=== PATIENT | female | born 1995 | race Caucasian/White ===

== ENCOUNTER 2024-10-08 13:24 | Outpatient (CLI) | payer MEDICAID, SELFPAY | END 2024-10-08 13:25 | disposition home or self-care (01) | PROVIDERS: PCP Registered Nurse; Visit Provider Registered Nurse | DX: Z13.220 Encounter for screening for lipoid disorders (principal); Z13.1 Encounter for screening for diabetes mellitus; Z13.29 Encounter for screening for other suspected endocrine disorder | CPT/HCPCS: 80061; 82947; 84443 ==